=== PATIENT | female | born 1975 | race African-American/Black ===

== ENCOUNTER 2016-05-07 18:01 | Emergency (ER) | payer SELFPAY ==
[2016-05-07 19:17] LABS: Bacteria/HPF Rare-Few HPF (None Seen); Bilirubin Negative (Negative); Blood, Urine Trace (Negative); Clarity Clear (Clear); Glucose, Urine (Dipstick) Negative (Negative); Leukocyte Small (Negative); Nitrite Negative (Negative); Protein, Urine (Dipstick) Negative (Neg-Trace); RBC/HPF 0-3 HPF (0-3); Specific Gravity, Urine 1.005 (1.005-1.030); Squamous Epithelial 0-3 HPF (0-3); Urobilinogen 0.2 mg/dL (0.2-1.0); WBC/HPF 0-3 HPF (0-3)
[2016-05-07] MEDS ORDERED: Cyclobenzaprine 10 MG TAB ONE (20:20)
[2016-05-07] MEDS ORDERED: Sulfameth/Trimethoprim DS 800-160mg TAB ONE (20:20)
[2016-05-07] MEDS ORDERED: HYDROcodone/Acetaminophen 5/325 mg Tablet ONE (20:20)
--- NOTE | 2016-05-07 20:41 | PICIS ---
[facility] EMERGENCY RECORD TRIAGE (18:30 MDEB) PATIENT: NAME: Corina Ayala, AGE: 41, GENDER: female, : Sun 1975, TIME OF GREET: FriMay 07, 2016 18:02, PREFERRED LANGUAGE: Macedonian, RACE: Black or , ETHNICITY: Not or , FALL RISK: NO, ECODE BILLING MAP: [facility], SSN: [id number], Zip Code: [address], KG WEIGHT: 115.67, PHONE: CELL, , , PERSON ID: [id number], PCP: DO Winter Hillary. (18:30 MDEB) TRIAGE NOTES: L FLANK PAIN. (18:30 MDEB) COMPLAINT: LOWER BACK PAIN. (18:30 MDEB) ADMISSION: URGENCY: 4 Non Urgent, ADMISSION SOURCE: Home, TRANSPORT: Walk-in, BED: TRIAGE. (18:30 MDEB) PAIN: Patient complains of pain described as, aching, on a scale 0-10 patient rates pain as 8. (18:30 MDEB) TRIAGE SCREENING: Patient denies suicidal ideation, Patient denies presence of domestic violence. (18:30 MDEB) PROVIDERS: TRIAGE NURSE: Christiana Fry RN. (18:30 MDEB) VITAL SIGNS: BP 149/88, Pulse 70, Resp 20, Temp 97.9, (Tympanic), Pain 8, O2 Sat 100, on Room Air, Time 05/07/2016 18:29. (18:29 MDEB) PREVIOUS VISIT ALLERGIES: No Known Allergies. (18:30 MDEB) KNOWN ALLERGIES ALLERGIES: (Unconfirmed) FOOD ALLERGIES: (Unconfirmed) LATEX ALLERGY? (Unconfirmed) No Known Allergies (Unconfirmed) CURRENT MEDICATIONS No recorded medications VITAL SIGNS (18:29 MDEB) VITAL SIGNS: BP: 149/88, Pulse: 70, Resp: 20, Temp: 97.9 (Tympanic), Pain: 8, O2 sat: 100 on Room Air, Time: 05/07/2016 18:29. NURSING ASSESSMENT: GENITOURINARY (19:30 MCRS) CONSTITUTIONAL: Patient arrives ambulatory, Gait steady, History obtained from patient, Patient appears comfortable, Patient cooperative, Patient alert, Oriented to person, place and time, Skin warm, Skin dry, Skin normal in color, Mucous membranes pink, Mucous membranes moist, Patient is well-groomed, Patient complains of left flank pain. PAIN FEMALE: aching pain, left flank, Onset of pain this am, on a scale 0-10 patient rates pain as 8. NONVERBAL PAIN: Non Verbal pain assessment findings include: Non-verbal expressions of pain at rest (1). GENITOURINARY FEMALE: Associated with urinary complaints, frequency. SAFETY: Side rails up, Cart/Stretcher in lowest position, Family &a-1R&a+25V*p+0X*[id number]*c202B*c15G*c2P*p-0X&a-25V&a+1R Name: Corina Ayala : 1975 F41 MedRec: [id number] AcctNum: [id number] Prepared: Carina May 07, 2016 20:56 by Interface Page 1 of 7 pMD [facility] EMERGENCY RECORD at bedside, Call light within reach, Hospital ID band on. NURSING PROCEDURE: DISCHARGE NOTE (20:35 MCRS) DISCHARGE: Patient discharged to home, ambulating without assistance, family driving, accompanied by //partner, Summary of Care printed/ provided, Patient requested and was provided an electronic copy of Discharge Instructions, Transition record given to patient, Discharge instructions given to , Simple or moderate discharge teaching performed, by yvrose ha rn, discharge instructions, Prescriptions given and instructions on side effects given, Medication reconciliation form given, Above person(s) verbalized understanding of discharge instructions and follow-up care, Patient treated and evaluated by physician. BELONGINGS: Valuables remain with patient. ORDER DETAILS Order Name: Urinalysis w/ Rflx Microscopic, Status: Active, Time: 18:48 05/07/2016, User: CARLOS, - Ordered for: MD Stroud Anthony, - Entered by: THEE Fry, Christiana - Carina May 07, 2016 18:48, - Quantity: 1. MEDICATION ADMINISTRATION SUMMARY Drug Name: Flexeril, Dose Ordered: 10 mg, Route: Oral, Status: Given, Time: 20:26 05/07/2016, Drug Name: Bactrim DS, Dose Ordered: 800-160 mg, Route: Oral, Status: Given, Time: 20:22 05/07/2016, Drug Name: HYDROcodone-acetaminophen, Dose Ordered: 5/325 tab(s), Route: Oral, Status: Given, Time: 20:22 05/07/2016, Detailed record available in Medication Service section. MEDICATION SERVICE Bactrim DS: Order: Bactrim DS (sulfamethoxazole/trimethoprim) - Dose: 800-160 mg : Oral Schedule: Now Ordered by: Zaheer Stroud MD Entered by: Zaheer Stroud MD FriMay 07, 2016 20:16 , Acknowledged by: [place] Ha RN FriMay 07, 2016 20:18 Documented as given by: [place] Ha RN FriMay 07, 2016 20:22 Patient, Medication, Dose, Route and Time verified prior to administration. Amount given: 1 tab, Site: Medication administered P.O., Patient appears Awake and alert- acceptable, Correct patient, time, route, dose and medication confirmed prior to administration, Patient advised of actions and side-effects prior to administration, Allergies confirmed and medications reviewed prior to administration. : Follow Up : Response assessment performed, No signs or &a-1R&a+25V*p+0X*m4750K*c202B*c15G*c2P*p-0X&a-25V&a+1R Name: Corina Ayala : 1975 F41 MedRec: [id number] AcctNum: [id number] Prepared: FriMay 07, 2016 20:56 by Interface Page 2 of 7 pMD [facility] EMERGENCY RECORD symptoms of allergic reaction noted, No change in symptoms. (20:35 MCRS) Flexeril: Order: Flexeril (cyclobenzaprine HCl) - Dose: 10 mg : Oral Schedule: Now Ordered by: Zaheer Stroud MD Entered by: Zaheer Stroud MD FriMay 07, 2016 20:15 , Acknowledged by: [place] Ha RN FriMay 07, 2016 20:18 Documented as given by: [place] Ha RN FriMay 07, 2016 20:26 Patient, Medication, Dose, Route and Time verified prior to administration. Amount given: 10mg, Site: Medication administered P.O., Patient appears Awake and alert- acceptable, Correct patient, time, route, dose and medication confirmed prior to administration, Patient advised of actions and side-effects prior to administration, Allergies confirmed and medications reviewed prior to administration. : Follow Up : Response assessment performed, No signs or symptoms of allergic reaction noted, No change in symptoms. (20:35 MCRS) HYDROcodone-acetaminophen: Order: HYDROcodone-acetaminophen (hydrocodone bitartrate/acetaminophen) - Dose: 5/325 tab(s) : Oral Schedule: Now Ordered by: Zaheer Stroud MD Entered by: Zaheer Stroud MD FriMay 07, 2016 20:12 , Acknowledged by: [place] Ha RN May 07, 2016 20:18 Documented as given by: [place] Ha RN FriMay 07, 2016 20:22 Patient, Medication, Dose, Route and Time verified prior to administration. Amount given: 1 tab, Site: Medication administered P.O., Patient appears Awake and alert- acceptable, Correct patient, time, route, dose and medication confirmed prior to administration, Patient advised of actions and side-effects prior to administration, Allergies confirmed and medications reviewed prior to administration. : Follow Up : Response assessment performed, No signs or symptoms of allergic reaction noted, No change in symptoms. (20:35 MCRS) HPI BACK (20:25 ABUS) CHIEF COMPLAINT: Patient presents for evaluation of pain, to the right lower back. HISTORIAN: History provided by patient, 41 yr old F with R LBP that started this morning without F, N/V, dysuria. No Hx of renal stones. MECHANISM OF INJURY: No apparent mechanism of injury. LOCATION: Symptoms are localized to the back, right lumbar region, Radiation to the back. QUALITY: Pain is dull in nature, described as aching. SEVERITY: Currently symptoms are moderate, Current severity of pain rated as 8/10. TIME COURSE: Sudden onset of symptoms. &a-1R&a+25V*p+0X*d2687W*c202B*c15G*c2P*p-0X&a-25V&a+1R Name: Corina Ayala : 1975 F41 MedRec: [id number] AcctNum: [id number] Prepared: FriMay 07, 2016 20:56 by Interface Page 3 of 7 pMD [facility] EMERGENCY RECORD ASSOCIATED WITH: Associated symptoms reviewed. EXACERBATED BY: Patient's condition exacerbated by nothing. RELIEVED BY: Patient's condition relieved by nothing. ROS (20:27 ABUS) CONSTITUTIONAL: Negative constitutional review of systems, Historian denies chills, denies fever. CARDIOVASCULAR: Negative cardiovascular review of systems, Historian denies chest pain, denies palpitations. RESPIRATORY: Negative respiratory review of systems, Historian denies cough, denies shortness of breath. GI: Negative gastrointestinal review of systems, Historian denies abdominal pain, denies constipation, denies diarrhea, denies nausea, denies vomiting. GENITOURINARY FEMALE: Negative genitourinary review of systems, Historian denies dysuria, denies frequency. MUSCULOSKELETAL: Historian reports back pain. SKIN: Negative skin review of systems, Historian denies rash, denies skin changes. NEUROLOGIC: Negative neurologic review of systems, Historian denies headache. HEMO/LYMPHATIC: Normal hematologic/lymphatic system review, Historian denies abnormal blood clotting. PAST MEDICAL HISTORY (18:30 MDEB) MEDICAL HISTORY: Flu vaccine not up to date, Tetanus immunization up to date, Pneumococcal vaccine not up to date, Past medical history includes history of hypertension, which has been treated, Past medical history includes history of hypertension 10-05-14. FEMALE SURGICAL HISTORY: Patient's surgical history is not relevant to the management of the case. 10-05-14. PSYCHIATRIC HISTORY: NONE. SOCIAL HISTORY: Patient denies alcohol use, Patient denies drug use, Patient has no smoking history, Lives at home, with family. FAMILY HISTORY: Family istory is not significant. PHYSICAL EXAM (20:27 ABUS) CONSTITUTIONAL: Vital signs reviewed, Patient afebrile, Pulse normal, Blood pressure normal, Respiratory rate normal, Patient appears non toxic, Patient appears pain free, Patient alert and oriented to person, place and time. NECK: Neck exam normal, Neck exam included findings of normal range of motion, Trachea midline, no meningeal signs, no cervical adenopathy, no tenderness. RESPIRATORY CHEST: Respiratory and chest exam normal, Respiratory exam included findings of no respiratory distress, Breath sounds clear. &a-1R&a+25V*p+0X*g7693L*c202B*c15G*c2P*p-0X&a-25V&a+1R Name: Corina Ayala : 1975 F41 MedRec: [id number] AcctNum: [id number] Prepared: FriMay 07, 2016 20:56 by Interface Page 4 of 7 pMD [facility] EMERGENCY RECORD CARDIOVASCULAR: Cardiovascular assessment normal, Cardiovascular exam included findings of heart rate regular rate and rhythm, Heart sounds normal. ABDOMEN FEMALE: Abdominal exam included findings of abdomen nontender, Bowel sounds normal, no distension, no mass, no pulsatile masses, no peritoneal signs, no rigidity, no guarding, no rebound, Rovsing's sign absent. BACK: Back exam included findings of normal inspection, range of motion normal, Tenderness, midline to the lower back, paraspinal to the right lower. NEURO: Neuro exam normal, Neuro exam findings include patient oriented to person, place and time, Speech normal, Gait normal. SKIN: Skin exam normal, Skin exam included findings of skin warm, dry, and normal in color, no rash. EVENTS TRANSFER: Triage to Emergency Triage. (FriMay 07, 2016 18:30 MDEB) Emergency Triage to Waiting. (18:39 MDEB) Emergency Waiting to Main ED -H01. (19:08 MDEB) Emergency Main ED -H01 to -04. (19:29 MDEB) Removed from Emergency Main ED -04. (20:45 MCRS) DOCTOR NOTES (20:28 ABUS) TEXT: 41 yr old F with R LBP that started this morning without F, N/V, dysuria. No Hx of renal stones. EXAM: Afebrile. NAD. R LBP pain without radiation downt he sciatic nerve DX: UTI, pyelo, back strain, muscle spasm PLAN: Abx, analgesics, and muscle relaxant. here. return precautions. PROBLEM LIST No recorded problems DIAGNOSIS (20:19 ABUS) FINAL: PRIMARY: UTI, ADDITIONAL: Muscle spasm, Muscle strain. DISPOSITION PATIENT: Disposition Type: Discharge, Disposition: *Discharge Home, Condition: Good. (20:19 ABUS) Disposition Transport: Car. (20:45 MCRS) Patient left the department. (20:45 MCRS) INSTRUCTION (20:20 ABUS) DISCHARGE: UTI CYSTITIS FEMALE ADULT, LOW BACK PAIN GENERAL. FOLLOWUP: DO Winter Hillary, [facility], [address] [place] [id number], , Follow up with Primary Care Physician in 2-3 days. &a-1R&a+25V*p+0X*z9818I*c202B*c15G*c2P*p-0X&a-25V&a+1R Name: Corina Ayala : 1975 F41 MedRec: [id number] AcctNum: [id number] Prepared: Carina May 07, 2016 20:56 by Interface Page 5 of 7 pMD [facility] EMERGENCY RECORD SPECIAL: As discussed in the ER before you left, please follow up with your primary care doctor or call the referral made for you here in the ED today to establish outpatient follow up for your medical care. Please come back sooner if you start to develop fever, worsening pain, swelling, or symptoms that are new or symptoms the concern you. PRESCRIPTION (20:18 ABUS) Flexeril: TABLET : 10 mg : ORAL : Quantity: 10 Unit: mg Route: ORAL Schedule: every 8 hours PRN Dispense: 6 Unit: tab(s) May substitute. Refills: No Refills . NOTES: No Refills. acetaminophen-codeine: TABLET : 300 mg-30 mg : ORAL : Quantity: 1 Unit: tab(s) Route: ORAL Schedule: every 6 hours PRN Dispense: 6 Unit: tab(s) May substitute. Refills: No Refills . NOTES: ^s=No Refills No Refills. Bactrim DS: TABLET : 800 mg-160 mg : ORAL : Quantity: 1 Unit: tab(s) Route: ORAL Schedule: 2 times a day Dispense: 10 Unit: tab(s) May substitute. Refills: No Refills . NOTES: ^s=^s=No Refills No Refills No Refills. IMAGING (20:38 MCRS) *SUPPLY CHARGE SHEET: Image captured from scanner. *DISCHARGE INSTRUCTIONS RECEIPT: Image captured from scanner. Page 2 added. Image captured from scanner. ADMIN DIGITAL SIGNATURE: MD Stroud Anthony. (20:30 ABUS) THEE Ha, Lake. (20:45 MCRS) RESULTS LABORATORY: Urinalysis w/ Rflx Microscopic Collection DT: FriMay 07, 2016 19:06, Color Yellow , Range (Yellow), Clarity Clear , Range (Clear), Specific [place], Urine 1.005 , Range (1.005-1.030), pH, Urine 6.0 , Range (5.0-9.0), *Leukocyte Small - H , Range (Negative), Nitrite Negative , Range (Negative), Protein, Urine (Dipstick) Negative mg/dL, Range (Neg-Trace), Glucose, Urine (Dipstick) Negative mg/dL, Range (Negative), Ketone, Urine Negative mg/dL, Range (Negative), Urobilinogen 0.2 mg/dL, Range (0.2-1.0), Bilirubin Negative , Range (Negative), &a-1R&a+25V*p+0X*e0156G*c202B*c15G*c2P*p-0X&a-25V&a+1R Name: Corina Ayala : 1975 F41 MedRec: [id number] AcctNum: [id number] Prepared: FriMay 07, 2016 20:56 by Interface Page 6 of 7 pMD [facility] EMERGENCY RECORD *Blood, Urine Trace - H , Range (Negative). (19:24 MDEB) Urine Microscopic Collection DT: FriMay 07, 2016 19:06, RBC/HPF 0-3 HPF, Range (0-3), WBC/HPF 0-3 HPF, Range (0-3), Squamous Epithelial 0-3 HPF, Range (0-3), Bacteria/HPF Rare-Few HPF, Range (None Seen). (19:39 ADEA) Urinalysis w/ Rflx Microscopic Collection DT: FriMay 07, 2016 19:06, Color Yellow , Range (Yellow), Clarity Clear , Range (Clear), Specific [place], Urine 1.005 , Range (1.005-1.030), pH, Urine 6.0 , Range (5.0-9.0), *Leukocyte Small - H , Range (Negative), Nitrite Negative , Range (Negative), Protein, Urine (Dipstick) Negative mg/dL, Range (Neg-Trace), Glucose, Urine (Dipstick) Negative mg/dL, Range (Negative), Ketone, Urine Negative mg/dL, Range (Negative), Urobilinogen 0.2 mg/dL, Range (0.2-1.0), Bilirubin Negative , Range (Negative), *Blood, Urine Trace - H , Range (Negative). (19:39 ADEAyesha) Davidson: ABDELRAHMAN=MD Maximus, Zaheer HERNANDEZ=THEE Mccain, Praveen MCRS=THEE Ha, Lake BABCOCKEB=THEE Fry, Christiana &a-1R&a+25V*p+0X*v2552D*c202B*c15G*c2P*p-0X&a-25V&a+1R Name: Corina Ayala : 1975 F41 MedRec: [id number] AcctNum: [id number] Prepared: Carina May 07, 2016 20:56 by Interface Page 7 of 7 pMD MTDD
== END 2016-05-07 20:35 | disposition home or self-care (01) ==
LOC: MADERS 18:01
DX: S39.012A Strain of muscle, fascia and tendon of lower back, initial encounter (principal); N39.0 Urinary tract infection, site not specified; I10 Essential (primary) hypertension; X58.XXXA Exposure to other specified factors, initial encounter
CPT/HCPCS: 81003; 81015; 99283

== ENCOUNTER 2018-04-18 16:12 | Emergency (ER) | payer MEDICAID, OTHER ==
[2018-04-18] MEDS ORDERED: Ibuprofen 800 MG TAB ONE (16:46)
== END 2018-04-18 16:45 | disposition home or self-care (01) ==
LOC: MADERS 16:12
DX: J30.2 Other seasonal allergic rhinitis (principal); E11.9 Type 2 diabetes mellitus without complications; I10 Essential (primary) hypertension; Z79.899 Other long term (current) drug therapy; Z79.84 Long term (current) use of oral hypoglycemic drugs
CPT/HCPCS: 99283

== ENCOUNTER 2018-06-06 17:47 | Emergency (ER) | payer OTHER | END 2018-06-06 19:13 | disposition home or self-care (01) | LOC: MADERS 17:47 | DX: J06.9 Acute upper respiratory infection, unspecified (principal); E11.9 Type 2 diabetes mellitus without complications; I10 Essential (primary) hypertension; Z79.899 Other long term (current) drug therapy; Z79.84 Long term (current) use of oral hypoglycemic drugs | CPT/HCPCS: 87804; 99283 ==

== ENCOUNTER 2019-04-04 12:22 | Emergency (ER) | payer BC | END 2019-04-04 12:47 | disposition home or self-care (01) | LOC: MADERS 12:22 | DX: K02.9 Dental caries, unspecified (principal); E11.9 Type 2 diabetes mellitus without complications; I10 Essential (primary) hypertension; Z79.84 Long term (current) use of oral hypoglycemic drugs; Z79.899 Other long term (current) drug therapy | CPT/HCPCS: 99282 ==

== ENCOUNTER 2020-03-06 15:29 | Emergency (ER) | payer BC ==
[~2020-03-06 15:29] MED LIST: Iopamidol 370 76% 125 ML VIAL FS ONE
[2020-03-06 16:25] LABS: #Eosinphils 0.1 thou/uL (0.0-0.7); #Lymphocytes 2.8 thou/uL (1.20-3.40); #Monocytes 0.4 thou/uL (0.11-0.59); %Basophils 0.4 % (0.0-1.0); %Lymphocytes 44.9 % (21.0-51.0); %Monocytes 6.2 % (0.0-10.0); %Neutrophils 47.6 % (42.0-75.0); Hemoglobin 13.6 g/dL (12.0-16.0); Mean Corpuscular HGB CONC 32.5 g/dL (32.0-36.0); Mean Corpuscular Volume 92.2 fL (78.0-98.0); Platelet Count 364 thou/uL (130-400); RBC Distribution Width 12.3 % (11.5-14.5); Red Blood Cell (RBC) Count 4.54 mill/uL (4.20-5.40); White Blood Cell (WBC) Count 6.3 thou/uL (4.8-10.8)
--- NOTE | 2020-03-06 16:30 | RAD ---
XR Chest 1 View Portable HISTORY: Dyspnea COMPARISON: 09/29/2018 FINDINGS: The heart size is normal. The lungs are well expanded without focal areas of consolidation, pneumothorax or pleural effusions. IMPRESSION: No radiographic evidence of acute cardiopulmonary process.
[2020-03-06 16:39] LABS: ALT (SGPT) 30 U/L (8-55); AST (SGOT) 24 U/L (5-34); Alkaline Phosphatase 95 U/L (40-110); Anion Gap 17 mmol/L (10-20); BUN (Urea Nitrogen) 7 mg/dL (7.0-18.7); Bilirubin, Total 0.2 mg/dL (0.2-1.2); Calc. Creatinine Clearance 0 mL/min (70-130); Calcium 9.4 mg/dL (7.8-10.44); Carbon Dioxide 27 mmol/L (22-29); Chloride 100 mmol/L (98-107); Estimated GFR-MDRD Greater than 90; Glucose 94 mg/dL (70-105); Potassium 3.5 mmol/L (3.5-5.1); Sodium 140 mmol/L (136-145)
[2020-03-06] MEDS ORDERED: Aspirin Chewable 81 MG TAB ONE (16:45)
[2020-03-06] MEDS ORDERED: Dexamethasone 10 MG/ML VIAL ONE (16:45)
--- NOTE | 2020-03-06 19:14 | CT ---
CTA THORAX WITH CONTRAST: (Computed Tomographic Angiography, chest(noncoronary) with contrast material, and image postprocessin g) (PE protocol) DATE: 03-06-2020 HISTORY: 45-year-old female with chest pain, elevated D-Dimer, and Covid 19 positivity. TECHNIQUE: IV injection of iodinated contrast: Administered Scan acquisition timing attempted to coincide with iodinated contrast bolus reaching maximal density in pulmonary arteries. 3D MIP reconstructions. According to the electrical engineering technologist, Note, the IV hub leaked. FINDINGS: There is no thrombus in the pulmonic trunk, left and right main pulmonary arteries, or their proximal branches. Peripheral branches are somewhat difficult to evaluate because of body habitus. No thoracic aortic aneurysm or dissection. No pleural effusion or pneumothorax. No ground glass lesions suspicious for Covid 19 pneumonia. No mediastinal or hilar lymphadenopathy. Trachea and major bronchi are patent and clear. At the anterior base of the right lower lobe, there is an approximately 1.5 x 1 x 0.7 cm stellate non calcified pulmonary lesion abutting the right diaphragmatic pleural surface. IMPRESSION: 1. No pulmonary thromboembolism identified. 2. Small 1.5 cm stellate pulmonary lesion at anterior base of right lower lobe. This could be an early small infiltrate or primary lung cancer. Strongly recommend follow up chest CT in 1 month. If this persists at that time, PET scan would then be recommended. This is not amenable to percutaneou s biopsy. gregg POS: SHERRY
== END 2020-03-06 18:38 | disposition home or self-care (01) ==
LOC: MADERS 15:29
DX: U07.1 COVID-19 (principal); E11.9 Type 2 diabetes mellitus without complications; I10 Essential (primary) hypertension; Z79.84 Long term (current) use of oral hypoglycemic drugs; Z79.899 Other long term (current) drug therapy
CPT/HCPCS: 36415; 71045; 71275; 80053; 83605; 84484; 85025; 85379; 86140; 93005; 96372; J1100; Q9967

== ENCOUNTER 2020-03-15 15:04 | Emergency (ER) | payer BC | END 2020-03-15 16:47 | disposition home or self-care (01) | LOC: MADERS 15:04 | DX: U07.1 COVID-19 (principal); E11.9 Type 2 diabetes mellitus without complications; I10 Essential (primary) hypertension; Z79.84 Long term (current) use of oral hypoglycemic drugs; Z79.82 Long term (current) use of aspirin; Z79.899 Other long term (current) drug therapy | CPT/HCPCS: 99284 ==

== ENCOUNTER 2020-10-21 07:01 | Emergency (ER) | payer BC ==
[2020-10-21] MEDS ORDERED: predniSONE 20 MG TAB ONE (08:29)
== END 2020-10-21 08:35 | disposition home or self-care (01) ==
LOC: MADERS 07:01
DX: J98.01 Acute bronchospasm (principal); J06.9 Acute upper respiratory infection, unspecified; R53.1 Weakness; E11.9 Type 2 diabetes mellitus without complications; I10 Essential (primary) hypertension; Z79.82 Long term (current) use of aspirin; Z79.899 Other long term (current) drug therapy
CPT/HCPCS: 71045; J7512; J7620